=== PATIENT | female | born 1990 | race Caucasian/White ===

== ENCOUNTER 2020-07-11 19:28 | Emergency (ER) | payer BC ==
[2020-07-11] MEDS ORDERED: Ondansetron 4 MG Tab.DIS PO ONE (20:04)
--- NOTE | 2020-07-11 20:06 | EDM.PDOC ---
ED HPI GENERAL MEDICAL PROBLEM - General Chief Complaint: General Stated Complaint: Vaginal bleeding Time Seen by Provider: 07/11/20 19:46 Source of Information: Reports: Patient History Limitations: Reports: No Limitations - History of Present Illness INITIAL COMMENTS - FREE TEXT/NARRATIVE: Patient had LEEP performed this morning at [facility] in [place]. Started to have brighter red vaginal bleeding around 3pm. Amount of bleeding has slowly accelerated since then. Now soaking through a pad every half hour. No dizziness/SOB. Not on any blood thinners. Has passed some clots. Called [facility]. - Related Data Allergies Allergy/AdvReac Type Severity Reaction Status Date / Time No Known Allergies Allergy Verified 07/11/20 19:54 Home Meds: Home Meds ARIPiprazole [Abilify] 5 mg PO DAILY 07/11/20 [History] Calcium Carb, Citrate/Vit D3 [Citracal + D ER] 1 each PO BID 07/11/20 [History] Multivit-Min/Iron/Folic Acid/K [Bariatric Mv-Iron 45 mg Cap] 2 tab PO DAILY 07/11/20 [History] diazePAM [Valium] 10 mg PO ASDIRECTED PRN 07/11/20 [History] hydrOXYzine pamoate [Vistaril] 50 mg PO BID PRN 07/11/20 [History] lamoTRIgine [LaMICtal] 300 mg PO DAILY 07/11/20 [History] Past Medical History Psychiatric History: Reports: Bipolar Endocrine/Metabolic History: Reports: Obesity/BMI 30+ - Past Surgical History HEENT Surgical History: Reports: Tonsillectomy GI Surgical History: Reports: Bariatric Procedure Social & Family History - Tobacco Use Smoking Status *Q: Former Smoker Used Tobacco, but Quit: Yes Month/Year Tobacco Last Used: 11/2017 - Caffeine Use Caffeine Use: Reports: None - Alcohol Use Days Per Week of Alcohol Use: 7 Number of Drinks Per Day: 2 Total Drinks Per Week: 14 Date of Last Drink: 07/10/20 - Recreational Drug Use Recreational Drug Use: No ED ROS GENERAL - Review of Systems Review Of Systems: See Below Constitutional: Reports: No Symptoms HEENT: Reports: No Symptoms Respiratory: Reports: No Symptoms Cardiovascular: Reports: No Symptoms GI/Abdominal: Reports: No Symptoms : Reports: Other (Vaginal bleeding) Neurological: Reports: No Symptoms Psychiatric: Reports: No Symptoms ED EXAM, GENERAL - Physical Exam Exam: See Below Exam Limited By: No Limitations General Appearance: Alert, No Apparent Distress, Obese Eye Exam: Bilateral Eye: EOMI, PERRL Ears: Hearing Grossly Normal Throat/Mouth: Normal Voice, No Airway Compromise Head: Atraumatic, Normocephalic Neck: Supple Respiratory/Chest: No Respiratory Distress (Female) Exam: Vaginal Bleeding Extremities: Normal Capillary Refill Neurological: Alert, Oriented, Normal Cognition, Normal Gait Psychiatric: Normal Affect, Normal Mood Skin Exam: Warm, Dry, Intact, Normal Color Course - Vital Signs Last Recorded V/S: Last Vital Signs Temp 36.6 C 07/11/20 19:33 Pulse 124 H 07/11/20 19:33 Resp 14 07/11/20 19:33 BP 153/101 H 07/11/20 19:33 Pulse Ox 100 07/11/20 19:33 - Orders/Labs/Meds Labs: Laboratory Tests 07/11/20 Range/Units 19:30 Hgb 14.1 (11.7-15.5) g/dL Meds: Medications Discontinued Medications Generic Name Dose Route Start Last Admin Trade Name Freq PRN Reason Stop Dose Admin Ondansetron HCl 4 mg 07/11/20 20:04 07/11/20 20:06 Zofran Odt PO 07/11/20 20:05 4 mg ONETIME ONE Administration - Re-Assessments/Exams Free Text/Narrative Re-Assessment/Exam: 07/11/20 21:01 Patient noted to have steady vaginal bleeding that was brighter red in color. More bleeding than would be anticipated after undergoing LEEP. Hgb checked and noted to be 14.1 Tachycardia noted at 120-125. Blood pressure elevated. Patient notes BP is higher than usual but she is under stress due to current situation. Call placed to [facility] and initially reviewed patient with from ObGyn. requested that we have the patient present to the [facility] ER and be triaged there. Patient then reviewed with from the ER and plans for transfer to [facility] ER arranged. Patient will be going by private vehicle. Departure - Departure Time of Disposition: 20:02 Disposition: DC/Tfer to Acute Hospital 02 Condition: Good Clinical Impression: S/P LEEP, Vaginal bleeding - Discharge Information *PRESCRIPTION DRUG MONITORING PROGRAM REVIEWED*: Not Applicable *COPY OF PRESCRIPTION DRUG MONITORING REPORT IN PATIENT ARMIDA: Not Applicable Referrals: Cheyanne Kim MANUFACTURING ADVISOR [Primary Care Provider] - Forms: ED Department Discharge Additional Instructions: Drive directly to [facility] ER. We spoke to from the ER and from OBGyn and they will continue to evaluate you once you arrive. Sepsis Event Note (ED) - Evaluation Sepsis Screening Result: No Definite Risk - Focused Exam Vital Signs: Vital Signs Temp Pulse Resp BP Pulse Ox 07/11/20 19:33 36.6 C 124 H 14 153/101 H 100
== END 2020-07-11 20:20 ==
LOC: LL.ED 19:28
DX: N93.9 Abnormal uterine and vaginal bleeding, unspecified (principal); E66.9 Obesity, unspecified; Z68.36 Body mass index [BMI] 36.0-36.9, adult; Z87.891 Personal history of nicotine dependence; Z98.890 Other specified postprocedural states
CPT/HCPCS: 36415; 85018; 99284; A9270-GY